=== PATIENT | male | born 1955 | race Two or more races ===

== ENCOUNTER 2020-02-01 15:08 | Emergency (ER) | payer MEDICAID, MEDICARE ==
[~2020-02-01] VITALS: Ht 175.3 cm; Wt 90.0 kg
[2020-02-01] MEDS ORDERED: ERGO500013 (15:27)
[2020-02-01] MEDS ORDERED: REPA1TAB5 MT (15:27)
[2020-02-01] MEDS ORDERED: ATOR-2 PO (15:27)
[2020-02-01] MEDS ORDERED: SAXA5TAB PO (15:27)
[2020-02-01] MEDS ORDERED: METF-414 PO (15:27)
[2020-02-01] MEDS ORDERED: SODIUM CHLORIDE 0.9% 1,000 ML IV ONE (15:47)
[2020-02-01 16:31] LABS: BASOPHILS % 0.7 % (0.0-2.0); EOSINOPHILS % 0.2 % (0.0-5.0); HEMATOCRIT. 44.5 % (42.0-52.0); HEMOGLOBIN. 15.1 g/dL (14.0-18.0); LYMPHOCYTES % 21.2 % (20.0-50.0); MEAN CORPUSCULAR VOLUME 88.7 fL (80.0-94.0); MEAN PLATELET VOLUME 11.4 fl (7.4-10.4); MONOCYTES % 8.9 % (2.0-8.0); PLATELET 127 x1000/uL (130-400); RED BLOOD CELL COUNT 5.02 mill/uL (4.7-6.1); RED CELL DISTRIBUTION WIDTH 13.2 % (11.6-14.6)
[2020-02-01 16:37] LABS: CHLORIDE 93 mEq/L (98-107)
[2020-02-01 16:42] LABS: INR 1.1; PROTHROMBIN TIME 11.5 sec (9.6-11.0)
[2020-02-01 17:49] VITALS: BP 130/78
[2020-02-01 17:56] LABS: CLARITY URINE CLEAR (CLEAR); COLOR URINE DARK YELLOW (YELLOW); KETONES URINE 2+ (NEGATIVE); LEUKOCYTE ESTERASE URINE NEGATIVE (NEGATIVE); NITRITE URINE NEGATIVE (NEGATIVE); OCCULT BLOOD URINE NEGATIVE (NEGATIVE); PROTEIN URINE 2+ (NEGATIVE); SPECIFIC GRAVITY URINE 1.032 (1.005-1.030)
[2020-02-01 18:19] LABS: *AMPHETAMINES SCREEN URINE NEGATIVE (NEGATIVE); *BARBITURATES SCREEN URINE NEGATIVE (NEGATIVE)
[2020-02-01 18:20] LABS: *BENZODIAZEPINES SCREEN URINE NEGATIVE (NEGATIVE); *COCAINE SCREEN URINE NEGATIVE (NEGATIVE); CANNABINOID URINE SCREEN NEGATIVE (NEGATIVE); OPIATES URINE SCREEN NEGATIVE (NEGATIVE); PHENCYCLIDINE URINE SCREEN NEGATIVE (NEGATIVE)
[2020-02-01 18:22] LABS: METHADONE URINE SCREEN NEGATIVE (NEGATIVE)
== END 2020-02-01 20:27 | disposition home or self-care (01) ==
LOC: ER 15:08
DX: E11.65 Type 2 diabetes mellitus with hyperglycemia (principal); I10 Essential (primary) hypertension; E78.00 Pure hypercholesterolemia, unspecified; Z79.899 Other long term (current) drug therapy
CPT/HCPCS: 36415; 71045; 80053; 80305; 81003; 82962; 83605; 83690; 83880; 84484; 85025; 85610; 93005; 96360; 99285; J7030